=== PATIENT | male | born 1960 | race Caucasian/White ===

== ENCOUNTER 2023-02-26 11:44 | Day surgery (SDC) | payer OTHER ==
[2023-02-26] VITALS (13 sets, daily range): BP systolic 90–118; BP diastolic 41–81; PULSE 58–68; TEMP 97.3–98.2
[~2023-02-26] VITALS: Ht 177.8 cm; Wt 76.4 kg
[2023-02-26 12:50] LABS: HEMATOCRIT 45.3 % (42.0-52.0); HEMOGLOBIN 15.2 g/dl (13.5-18.0); MEAN CELL VOLUME 92 fl (80.0-100.0); MEAN CORPUSCULAR HEMOGLOBIN 31 pg (27-31); MEAN CORPUSCULAR HGB CONC 34 g/dl (33.0-37.0); MEAN PLATELET VOLUME 8.9 fl (7.4-10.4); PLATELET COUNT 258 K/mm3 (130-400); RED BLOOD COUNT 4.95 M/mm3 (4.20-5.60); REDCELL DISTRIBUTION WIDTH-CV 14.6 % (11.5-14.5)
[2023-02-26 12:56] LABS: INR 1.5 (0.8-3.0); PROTHROMBIN TIME 15.9 SECONDS (9.7-12.8)
[2023-02-26 12:58] LABS: PARTIAL THROMBOPLASTIN TIME 34.9 SECONDS (26.0-37.0)
[2023-02-26 13:05] LABS: CALCIUM 8.9 mg/dL (8.4-10.2); CREATININE, serum 0.78 mg/dL (0.72-1.25); POTASSIUM 4.4 mmol/L (3.5-4.5)
[2023-02-26] MEDS ORDERED: ZETIA 10MG TAB10 MG PO (13:28)
[2023-02-26] MEDS ORDERED: TOPROL XL100 MG PO (13:29)
[2023-02-26] MEDS ORDERED: FLEXERIL 1010 MG/TAB PO (13:31)
[2023-02-26] MEDS ORDERED: LIPITOR 40MG TA40 MG PO (13:31)
[2023-02-26] MEDS ORDERED: PLAVIX 75MG TAB75 MG PO (13:32)
[2023-02-26] MEDS ORDERED: PHENERGAN 25 TA25 MG PO (13:32)
[2023-02-26] MEDS ORDERED: ALDACTONE 25MG25 M1 PO (13:39)
[2023-02-26] MEDS ORDERED: LASIX 20MG TABL20 MG PO (13:40)
[2023-02-26] MEDS ORDERED: ASPIRIN 32325 MG/TAB PO (13:41)
[2023-02-26] MEDS ORDERED: MS CONTIN 330 MG/TAB PO (13:42)
[2023-02-26] MEDS ORDERED: PERCOCET 325 MG1 TAB PO (13:42)
[2023-02-26] MEDS ORDERED: NITROSTAT0.4 MG/TAB SL (13:43)
[2023-02-26] MEDS ORDERED: TOPAMAX 25MG25 M1 PO (13:43)
[2023-02-26] MEDS ORDERED: AMITRIPTYLINE H25 M1 PO (13:44)
[2023-02-26] MEDS ORDERED: DEPAKOTE ER 25250 MG PO (13:45)
[2023-02-26] MEDS ORDERED: DEPAKOTE ER 50500 MG PO (13:46)
[2023-02-26] MEDS ORDERED: NIASPAN 500MG500 MG PO (13:46)
[2023-02-26] MEDS ORDERED: PEPCID 20MG TAB20 MG PO (13:47)
--- NOTE | 2023-02-26 15:25 | NUR ---
Report received pt to transport to inpt room.
--- NOTE | 2023-02-26 15:29 | NUR ---
Please see merge documentation for record of interventions, vitals and medications administered during procedure.
--- NOTE | 2023-02-26 16:49 | NUR ---
Patient arrived to room 310 from cardiac cath technician at approximately 1600 s/p heart cath with angioplasty. Radial band to right wrist in place and CDI. Educated patient on bedrest x1 hour and removal of air from band in 2 hours. Verbalizes understanding. VSS- see flowsheet. at bedside.
--- NOTE | 2023-02-26 19:08 | NUR ---
Radial band deflated- no active bleeding. Bandaid applied. Up to bathroom x1 assist. Reports falling in the last 3 months so fall precautions in place. Patient continues to deny pain or needs. Report given to Nati Rowe RN.
--- NOTE | 2023-02-26 20:00 | NUR ---
Initial shift assessment done- alert/oriented x4, pleasant, no requests, right radial site clean/dry/soft,no bruising noted, Gd radial pulse. tele on NSR, IV fluids of 1/2NS at 100cc/hr. denies any pain.
--- NOTE | 2023-02-26 22:00 | NUR ---
Up to bathroom with just standby, pt very steady, pt states he really did not fall technically when the previous nurse asked the questions and put him on fall risk-- states he tripped, has antislip slippers on. arm band, will not make him change gown at this time, agrees to bed alarm and to call for help - Up to chair and would like to sit for awhile- pleasant, given some snacks. Right radial site remains clean/dry,soft- bandaid on
[2023-02-27 01:00] VITALS: BP_SYST 105
[2023-02-27 03:47] VITALS: BP 115/65; PULSE 62; TEMP 98.1
[2023-02-27 04:32] VITALS: BP_SYST 115
--- NOTE | 2023-02-27 04:34 | NUR ---
Quiet night-- VSS, no requests, no chest pain/SOB, slept fair, tele on NSR,, right radial site with bandaid, no bleeding,gd radial pulse.
[2023-02-27 05:29] LABS: BASO # 0.1 K/mm3 (0.0-0.2); BASO % 0.5 % (0.0-2.0); EOS # 0.3 K/mm3 (0.0-0.7); EOS % 2.9 % (0.0-4.0); GRAN # 6.4 K/mm3 (1.4-6.5); GRAN % 58.1 % (42.2-75.2); HEMATOCRIT 43.6 % (42.0-52.0); HEMOGLOBIN 14.7 g/dl (13.5-18.0); LYMPH # 2.7 K/mm3 (1.2-3.4); LYMPH % 24.3 % (20.0-51.0); MEAN CELL VOLUME 90 fl (80.0-100.0); MEAN CORPUSCULAR HEMOGLOBIN 30 pg (27-31); MEAN CORPUSCULAR HGB CONC 34 g/dl (33.0-37.0); MEAN PLATELET VOLUME 8.9 fl (7.4-10.4); MONO # 1.5 K/mm3 (0.1-0.6); MONO % 13.3 % (1.7-9.3); PLATELET COUNT 250 K/mm3 (130-400); RED BLOOD COUNT 4.84 M/mm3 (4.20-5.60); REDCELL DISTRIBUTION WIDTH-CV 14.6 % (11.5-14.5)
[2023-02-27 05:43] LABS: CALCIUM 8.7 mg/dL (8.4-10.2); CHOLESTEROL RISK RATIO 4.6; CREATININE, serum 0.74 mg/dL (0.72-1.25); POTASSIUM 4.1 mmol/L (3.5-4.5)
[2023-02-27 07:39] VITALS: BP 112/71; PULSE 62; TEMP 97.6
[2023-02-27 09:00] VITALS: BP_SYST 112
--- NOTE | 2023-02-27 09:06 | NUR ---
Assessment completed earlier this am. A/O x4. Sitting up in chair. Denies chest pain or needs at this time. Bandaid to right radial site CDI. IVF infusing to LAC at 100ml/hr without s/s complications.
--- NOTE | 2023-02-27 09:27 | NUR ---
Initial visit; Patient states he is doing well and thanked [employer] Supervisor for lookingin on him and offering God's blessings.
[2023-02-27] MEDS ORDERED: WELLBUTRIN SR150 M1 PO (09:55)
--- NOTE | 2023-02-27 10:34 | NUR ---
Director Of Revenue met with Patient at bedside to conduct Care Managment Assessment and discuss discharge planning. Patient lives with his and two adult children in [place], [place] and is established with PCP Dr. Hamilton. Patient is covered by [employer] for insurance and states that he uses [facility] on [address] for medication services. Patient denies the use of DME and endorses independency with ADL/IADLs prior to admission. Patient is assessed to discharge home when medically ready. Patient states to not have DPOAHC and declines form at this time. Discharge Plan: Home
--- NOTE | 2023-02-27 11:20 | NUR ---
Discharge instructions reviewed with patient- verbalizes understanding. IV to LAC d/c'd with cath tip intact. Tele d/c'd. KATHERINE Abdalla from Cardiac Rehab spoke with patient prior to discharge- CHF notebook reviewed and given to patient. Pt escorted to private vehicle via w/c and discharged home with spouse.
--- NOTE | 2023-02-27 15:32 | NUR ---
Cardiac Rehab Note: (late entry--patient was seen by this RN at 10:30) Met with patient at bedside to discuss heart failure teaching and outpatient cardiac rehab. Reviewed ejection fraction and potential for SCD, need for possible ICD implant. Reviewed s/s of HF, when to call the doctor, daily weight monitoring, sodium and fluid restrictions, medication compliance and follow up appointment attendance. Heart failure booklet reviewed and provided. Discussed cardiac rehab program. Patient meets qualification based on angioplasty. Pending patients plan for complex PCI at [facility], will follow up with patient in 1-2 weeks to schedule intake evaluation. Patient lives in [place], and has not yet determined where he wants to do cardiac rehab ([facility] or here).
== END 2023-02-27 11:20 | disposition home or self-care (01) ==
LOC: COL.CAR 11:44 → MEDICAL 15:50 → COL.CAR 02-27 11:20
PROVIDERS: Internal Medicine Interventional Cardiology; Nurse Practitioner
DX: T82.897A Other specified complication of cardiac prosthetic devices, implants and grafts, initial encounter (principal); T82.855A Stenosis of coronary artery stent, initial encounter; I25.118 Atherosclerotic heart disease of native coronary artery with other forms of angina pectoris; I50.20 Unspecified systolic (congestive) heart failure; F17.200 Nicotine dependence, unspecified, uncomplicated; Y82.9 Unspecified medical devices associated with adverse incidents
CPT/HCPCS: OP; C1725; C1769; C1887; J0583; J1644; J2250; J3010; Q9967